=== PATIENT | male | born 1975 | race Caucasian/White ===

== ENCOUNTER 2018-12-11 16:02 | Emergency (ER) | payer OTHER ==
[~2018-12-11] VITALS: Ht 182.9 cm; Wt 89.4 kg
[2018-12-11 16:16] VITALS: Ht 182.9 cm; Wt 89.4 kg
[2018-12-11 17:59] LABS: CARBON DIOXIDE 27.1 mmol/L (21-32); CHLORIDE SERUM 103 mmol/L (98-107); CREATININE SERUM 1.1 mg/dL (0.7-1.3); GFR1 > 60 mL/min; GLUCOSE SERUM 88 mg/dL (74-106); POTASSIUM SERUM 3.5 mmol/L (3.5-5.1); SODIUM SERUM 140 mmol/L (136-145)
[2018-12-11 18:03] LABS: ALBUMIN 4.3 g/dL (3.4-5.0); ALKALINE PHOSPHATASE 94 U/L (46-116); ALT/SGPT 50 U/L (16-63); AST/SGOT 28 U/L (15-37); BILIRUBIN TOTAL 0.8 mg/dL (0.20-1.00); MAGNESIUM 1.9 mg/dL (1.8-2.4); TOTAL PROTEIN, SERUM 7.8 g/dL (6.4-8.2)
[2018-12-11 18:53] VITALS: BP 125/80
== END 2018-12-11 18:53 | disposition home or self-care (01) ==
LOC: ED 16:02
PROVIDERS: Specialist
DX: G43.909 Migraine, unspecified, not intractable, without status migrainosus (principal); I10 Essential (primary) hypertension; F41.9 Anxiety disorder, unspecified; F90.9 Attention-deficit hyperactivity disorder, unspecified type; Z88.0 Allergy status to penicillin
CPT/HCPCS: 36415; J1885; J8597

== ENCOUNTER 2019-04-17 08:08 | Emergency (ER) | payer MEDICAID ==
[~2019-04-17] VITALS: Ht 180.3 cm; Wt 77.1 kg
[2019-04-17 08:19] VITALS: Ht 180.3 cm; Wt 77.1 kg
[2019-04-17 09:57] LABS: BASOPHIL % 0.6 % (0-2); PLATELET COUNT 319 x10^3mcL (130-400); RED CELL DISTRIBUTION WIDTH 13.4 % (11.5-14.5)
[2019-04-17 10:05] LABS: CALCIUM 9.4 mg/dL (8.5-10.1); CARBON DIOXIDE 29.4 mmol/L (21-32); CHLORIDE SERUM 105 mmol/L (98-107); CREATININE SERUM 0.9 mg/dL (0.7-1.3); GFR1 > 60 mL/min; GLUCOSE SERUM 97 mg/dL (74-106); POTASSIUM SERUM 4.6 mmol/L (3.5-5.1); SODIUM SERUM 143 mmol/L (136-145)
[2019-04-17 10:10] LABS: ALBUMIN 4.4 g/dL (3.4-5.0); ALKALINE PHOSPHATASE 115 U/L (46-116); ALT/SGPT 28 U/L (16-63); AST/SGOT 11 U/L (15-37)
[2019-04-17 10:16] LABS: TOTAL PROTEIN, SERUM 8.4 g/dL (6.4-8.2)
[2019-04-17 12:02] VITALS: BP 122/75
== END 2019-04-17 12:02 | disposition home or self-care (01) ==
LOC: ED 08:08
PROVIDERS: Specialist
DX: R07.89 Other chest pain (principal); I47.1 Supraventricular tachycardia; F41.9 Anxiety disorder, unspecified; F90.9 Attention-deficit hyperactivity disorder, unspecified type; Z88.0 Allergy status to penicillin
CPT/HCPCS: 36415

== ENCOUNTER 2019-12-06 21:29 | Inpatient (IN) | payer OTHER ==
[~2019-12-06] VITALS: Ht 180.3 cm; Wt 85.3 kg
[2019-12-06] MEDS ORDERED: PROPRANOLOL HCL10 MG PO (21:34)
[2019-12-06 21:37] VITALS: Ht 180.3 cm; Wt 85.3 kg
[2019-12-06 22:04] LABS: BASOPHIL % 0.5 % (0-2); PLATELET COUNT 333 x10^3mcL (130-400); RED CELL DISTRIBUTION WIDTH 13.3 % (11.5-14.5)
[2019-12-06 22:21] LABS: CALCIUM 9.5 mg/dL (8.5-10.1); CARBON DIOXIDE 26.6 mmol/L (21-32); CHLORIDE SERUM 102 mmol/L (98-107); CREATININE SERUM 1.1 mg/dL (0.7-1.3); GFR1 > 60 mL/min; GLUCOSE SERUM 163 mg/dL (74-106); SODIUM SERUM 139 mmol/L (136-145)
[2019-12-06 22:26] LABS: ALBUMIN 3.8 g/dL (3.4-5.0); ALKALINE PHOSPHATASE 99 U/L (46-116); ALT/SGPT 48 U/L (16-63); AST/SGOT 32 U/L (15-37); BILIRUBIN TOTAL 0.4 mg/dL (0.20-1.00); TOTAL PROTEIN, SERUM 6.7 g/dL (6.4-8.2)
[2019-12-07 02:45] VITALS: BP 136/93
[2019-12-07] MEDS ORDERED: ESCITALOPRAM OXA5 MG PO (02:50)
[2019-12-07] MEDS ORDERED: ASPIR 8181 MG PO (02:51)
[2019-12-07] MEDS ORDERED: NASAL MIST126 ML (02:51)
[2019-12-07 04:42] LABS: CHOLESTEROL/HDL RATIO 3.8; PHOSPHOROUS 2.6 mg/dL (2.5-4.9)
[2019-12-07 04:52] LABS: T3 TOTAL 1.29 ng/mL
[2019-12-07 04:54] LABS: FREE T4 0.87 ng/dL (0.76-1.46); FREE THYROXINE INDEX 1.8 ug/dL (1.4-4.5); T4(THYROXINE) 5.2 ug/dL (4.7-13.3)
[2019-12-07 06:31] VITALS: BP 118/79
[2019-12-07 07:07] LABS: microscopic required? NO
[2019-12-07 07:18] LABS: BASOPHIL % 0.2 % (0-2); PLATELET COUNT 252 x10^3mcL (130-400); RED CELL DISTRIBUTION WIDTH 13.7 % (11.5-14.5)
[2019-12-07 07:44] LABS: CALCIUM 8.9 mg/dL (8.5-10.1); CARBON DIOXIDE 28.8 mmol/L (21-32); CHLORIDE SERUM 104 mmol/L (98-107); CREATININE SERUM 0.9 mg/dL (0.7-1.3); GFR1 > 60 mL/min; GLUCOSE SERUM 94 mg/dL (74-106); POTASSIUM SERUM 3.7 mmol/L (3.5-5.1); SODIUM SERUM 139 mmol/L (136-145)
[2019-12-07 08:15] VITALS: BP 117/80
[2019-12-07 09:15] LABS: UA SPECIFIC GRAVITY 1.015 (1.005-1.035)
[2019-12-07 09:16] LABS: AMPHETAMINE QUAL UR NONE DETECTED (See below); urine erythrocyte NEGATIVE (NEGATIVE)
[2019-12-07 11:46] VITALS: BP 124/74
[2019-12-07 16:37] VITALS: BP 132/94
[2019-12-07 16:53] VITALS: BP 132/94
== END 2019-12-07 17:10 | disposition home or self-care (01) | DRG 201 ==
LOC: ED 21:29 → DU 12-07 01:32
PROVIDERS: Emergency Medicine; ADMIT Internal Medicine
DX: I47.1 Supraventricular tachycardia (principal); I21.A1 Myocardial infarction type 2; F32.9 Major depressive disorder, single episode, unspecified; F41.9 Anxiety disorder, unspecified; F12.20 Cannabis dependence, uncomplicated; F90.9 Attention-deficit hyperactivity disorder, unspecified type; Z66 Do not resuscitate; Z88.0 Allergy status to penicillin; Z82.49 Family history of ischemic heart disease and other diseases of the circulatory system; Z79.899 Other long term (current) drug therapy
CPT/HCPCS: 83880; 84439; G0378; J0153; J1650; J7030; Q0092

== ENCOUNTER 2019-12-21 05:56 | Inpatient (IN) | payer OTHER ==
[~2019-12-21] VITALS: Ht 179.1 cm; Wt 93.0 kg
[~2019-12-21 05:56] MED LIST: ASPIR 8181 MG PO; ESCITALOPRAM OXA5 MG PO; NASAL MIST126 ML; PROPRANOLOL HCL10 MG PO
[2019-12-21 05:59] VITALS: Ht 179.1 cm; Wt 93.0 kg
[2019-12-21 07:43] LABS: BASOPHIL % 0.3 % (0-2); PLATELET COUNT 234 x10^3mcL (130-400); RED CELL DISTRIBUTION WIDTH 13.2 % (11.5-14.5)
[2019-12-21 07:47] LABS: ALKALINE PHOSPHATASE 88 U/L (46-116); ALT/SGPT 59 U/L (16-63); AST/SGOT 32 U/L (15-37); BILIRUBIN TOTAL 0.4 mg/dL (0.20-1.00); CARBON DIOXIDE 24.5 mmol/L (21-32); CREATININE SERUM 1.1 mg/dL (0.7-1.3); GFR1 > 60 mL/min; GLUCOSE SERUM 111 mg/dL (74-106); TOTAL PROTEIN, SERUM 6.3 g/dL (6.4-8.2)
[2019-12-21 07:49] LABS: ALBUMIN 3.3 g/dL (3.4-5.0)
[2019-12-21 07:53] LABS: CHLORIDE SERUM 104 mmol/L (98-107); POTASSIUM SERUM 3.8 mmol/L (3.5-5.1); SODIUM SERUM 138 mmol/L (136-145)
[2019-12-21] MEDS ORDERED: PRILOSEC OTC20 M1 (11:24)
[2019-12-21 12:36] LABS: PHOSPHOROUS 2.3 mg/dL (2.5-4.9)
[2019-12-21 12:37] LABS: CHOLESTEROL/HDL RATIO 3.7
[2019-12-21 13:05] VITALS: BP 140/95
[2019-12-21 16:46] VITALS: BP 126/69
[2019-12-21 20:17] VITALS: BP 118/85
[2019-12-22 05:40] VITALS: BP 122/85
[2019-12-22 08:39] VITALS: BP 124/83
[2019-12-22 09:00] LABS: BASOPHIL % 0.3 % (0-2); PLATELET COUNT 270 x10^3mcL (130-400); RED CELL DISTRIBUTION WIDTH 13.4 % (11.5-14.5)
[2019-12-22 09:01] LABS: CALCIUM 9.1 mg/dL (8.5-10.1); CARBON DIOXIDE 28.8 mmol/L (21-32); CHLORIDE SERUM 103 mmol/L (98-107); GFR1 > 60 mL/min; GLUCOSE SERUM 129 mg/dL (74-106); POTASSIUM SERUM 3.8 mmol/L (3.5-5.1); SODIUM SERUM 139 mmol/L (136-145)
[2019-12-22 13:21] VITALS: BP 144/92
[2019-12-22 16:00] VITALS: BP 144/92
== END 2019-12-22 17:24 | disposition home or self-care (01) | DRG 201 ==
LOC: ED 05:56 → DU 11:57
PROVIDERS: Emergency Medicine; ADMIT Family Medicine
DX: I47.1 Supraventricular tachycardia (principal); I71.2 Thoracic aortic aneurysm, without rupture; F12.20 Cannabis dependence, uncomplicated; F41.9 Anxiety disorder, unspecified; F32.9 Major depressive disorder, single episode, unspecified; Z88.0 Allergy status to penicillin
CPT/HCPCS: 83880; G0378; J0153; Q0092

== ENCOUNTER 2020-01-04 06:56 | Emergency (ER) | payer OTHER ==
[~2020-01-04] VITALS: Ht 180.3 cm; Wt 90.7 kg
[~2020-01-04 06:56] MED LIST changes: +PRILOSEC OTC20 M1
[2020-01-04 06:58] VITALS: Ht 180.3 cm; Wt 90.7 kg
[2020-01-04 08:16] LABS: BASOPHIL % 0.3 % (0-2); PLATELET COUNT 256 x10^3mcL (130-400); RED CELL DISTRIBUTION WIDTH 13.2 % (11.5-14.5)
[2020-01-04 08:19] LABS: CALCIUM 8.5 mg/dL (8.5-10.1); CHLORIDE SERUM 102 mmol/L (98-107); GFR1 > 60 mL/min; GLUCOSE SERUM 128 mg/dL (74-106); POTASSIUM SERUM 3.8 mmol/L (3.5-5.1); SODIUM SERUM 139 mmol/L (136-145)
[2020-01-04 08:23] LABS: ALBUMIN 3.7 g/dL (3.4-5.0); ALKALINE PHOSPHATASE 109 U/L (46-116); ALT/SGPT 60 U/L (16-63); AST/SGOT 29 U/L (15-37); BILIRUBIN TOTAL 0.4 mg/dL (0.20-1.00); TOTAL PROTEIN, SERUM 7.1 g/dL (6.4-8.2)
[2020-01-04 10:21] VITALS: BP 130/89
== END 2020-01-04 10:21 | disposition home or self-care (01) ==
LOC: ED 06:56
PROVIDERS: Emergency Medicine
DX: I47.1 Supraventricular tachycardia (principal); Z88.0 Allergy status to penicillin
CPT/HCPCS: 85378; J0153; J7030; Q0092; U0003-CS

== ENCOUNTER 2020-01-18 02:17 | Emergency (ER) | payer OTHER ==
[~2020-01-18] VITALS: Ht 177.8 cm; Wt 90.7 kg
[2020-01-18 02:21] VITALS: Ht 177.8 cm; Wt 90.7 kg
[2020-01-18 03:18] LABS: BASOPHIL % 0.4 % (0-2); PLATELET COUNT 287 x10^3mcL (130-400); RED CELL DISTRIBUTION WIDTH 13.3 % (11.5-14.5)
[2020-01-18 03:28] LABS: CARBON DIOXIDE 23.2 mmol/L (21-32); CHLORIDE SERUM 103 mmol/L (98-107); CREATININE SERUM 1.1 mg/dL (0.7-1.3); GFR1 > 60 mL/min; GLUCOSE SERUM 182 mg/dL (74-106); POTASSIUM SERUM 3.8 mmol/L (3.5-5.1); SODIUM SERUM 138 mmol/L (136-145)
[2020-01-18 03:33] LABS: ALBUMIN 3.8 g/dL (3.4-5.0); ALKALINE PHOSPHATASE 117 U/L (46-116); ALT/SGPT 83 U/L (16-63); AST/SGOT 33 U/L (15-37); BILIRUBIN TOTAL 0.33 mg/dL (0.20-1.00); TOTAL PROTEIN, SERUM 6.9 g/dL (6.4-8.2)
[2020-01-18 04:45] VITALS: BP 118/83
== END 2020-01-18 04:45 | disposition home or self-care (01) ==
LOC: ED 02:17
PROVIDERS: Emergency Medicine
DX: I47.1 Supraventricular tachycardia (principal); Z88.0 Allergy status to penicillin
CPT/HCPCS: Q0092

== ENCOUNTER 2020-02-19 03:54 | Emergency (ER) | payer OTHER ==
[~2020-02-19] VITALS: Ht 180.3 cm; Wt 99.8 kg
[2020-02-19 03:58] VITALS: Ht 180.3 cm; Wt 99.8 kg
[2020-02-19 04:35] LABS: CALCIUM 8.3 mg/dL (8.5-10.1); CARBON DIOXIDE 27.1 mmol/L (21-32); CHLORIDE SERUM 104 mmol/L (98-107); CREATININE SERUM 1.1 mg/dL (0.7-1.3); GFR1 > 60 mL/min; GLUCOSE SERUM 135 mg/dL (74-106); POTASSIUM SERUM 4.7 mmol/L (3.5-5.1); SODIUM SERUM 139 mmol/L (136-145)
[2020-02-19 04:36] LABS: BASOPHIL % 0.6 % (0-2); PLATELET COUNT 305 x10^3mcL (130-400); RED CELL DISTRIBUTION WIDTH 13.5 % (11.5-14.5)
[2020-02-19 07:26] VITALS: BP 118/91
== END 2020-02-19 07:26 | disposition home or self-care (01) ==
LOC: ED 03:54
PROVIDERS: Emergency Medicine
DX: I47.1 Supraventricular tachycardia (principal)
CPT/HCPCS: J0153; J3475

== ENCOUNTER 2020-04-24 04:08 | Emergency (ER) | payer OTHER ==
[~2020-04-24] VITALS: Ht 180.3 cm; Wt 90.7 kg
[2020-04-24 04:18] VITALS: Ht 180.3 cm; Wt 90.7 kg
[2020-04-24 04:47] LABS: BASOPHIL % 0.8 % (0-2); PLATELET COUNT 311 x10^3mcL (130-400); RED CELL DISTRIBUTION WIDTH 13.3 % (11.5-14.5)
[2020-04-24 04:56] LABS: CARBON DIOXIDE 24.2 mmol/L (21-32); CHLORIDE SERUM 103 mmol/L (98-107); CREATININE SERUM 1.2 mg/dL (0.7-1.3); GFR1 > 60 mL/min; GLUCOSE SERUM 121 mg/dL (74-106); POTASSIUM SERUM 3.4 mmol/L (3.5-5.1); SODIUM SERUM 138 mmol/L (136-145)
[2020-04-24 05:00] LABS: ALKALINE PHOSPHATASE 110 U/L (46-116); ALT/SGPT 81 U/L (16-63); AST/SGOT 34 U/L (15-37); BILIRUBIN TOTAL 0.31 mg/dL (0.20-1.00); TOTAL PROTEIN, SERUM 7.8 g/dL (6.4-8.2)
[2020-04-24 06:15] VITALS: BP 124/83
== END 2020-04-24 06:15 | disposition home or self-care (01) ==
LOC: ED 04:08
PROVIDERS: Emergency Medicine
DX: I47.1 Supraventricular tachycardia (principal)
CPT/HCPCS: J0153; J7030; Q0092

== ENCOUNTER 2020-06-07 16:10 | Emergency (ER) | payer OTHER ==
[~2020-06-07] VITALS: Ht 172.7 cm; Wt 90.7 kg
[2020-06-07 16:15] VITALS: Ht 172.7 cm; Wt 90.7 kg
[2020-06-07 17:37] LABS: BASOPHIL % 0.4 % (0-2); PLATELET COUNT 289 x10^3mcL (130-400); RED CELL DISTRIBUTION WIDTH 13.2 % (11.5-14.5)
[2020-06-07 17:47] LABS: CALCIUM 8.7 mg/dL (8.5-10.1); CARBON DIOXIDE 27.1 mmol/L (21-32); CHLORIDE SERUM 104 mmol/L (98-107); CREATININE SERUM 1.1 mg/dL (0.7-1.3); GFR1 > 60 mL/min; GLUCOSE SERUM 88 mg/dL (74-106); POTASSIUM SERUM 3.8 mmol/L (3.5-5.1); SODIUM SERUM 138 mmol/L (136-145)
[2020-06-07 18:00] LABS: ALBUMIN 3.9 g/dL (3.4-5.0); ALKALINE PHOSPHATASE 93 U/L (46-116); ALT/SGPT 67 U/L (16-63); AST/SGOT 32 U/L (15-37); BILIRUBIN TOTAL 0.57 mg/dL (0.20-1.00); T4(THYROXINE) 5.5 ug/dL (4.7-13.3); TOTAL PROTEIN, SERUM 7.3 g/dL (6.4-8.2)
[2020-06-07 18:08] LABS: AMPHETAMINE QUAL UR NONE DETECTED (See below)
[2020-06-07 18:09] LABS: MAGNESIUM 1.9 mg/dL (1.8-2.4)
[2020-06-07 18:35] VITALS: BP 114/87
== END 2020-06-07 18:35 | disposition home or self-care (01) ==
LOC: ED 16:10
PROVIDERS: Emergency Medicine
DX: R07.89 Other chest pain (principal); I72.9 Aneurysm of unspecified site; F90.9 Attention-deficit hyperactivity disorder, unspecified type; F41.9 Anxiety disorder, unspecified; F12.10 Cannabis abuse, uncomplicated; Z88.0 Allergy status to penicillin
CPT/HCPCS: J0153; J7030; Q0092

== ENCOUNTER 2020-07-05 07:46 | Emergency (ER) | payer OTHER ==
[~2020-07-05] VITALS: Ht 180.3 cm; Wt 90.7 kg
[2020-07-05 07:54] VITALS: Ht 180.3 cm; Wt 90.7 kg
[2020-07-05 08:18] LABS: PLATELET COUNT 306 x10^3mcL (130-400); RED CELL DISTRIBUTION WIDTH 13.6 % (11.5-14.5)
[2020-07-05 08:26] LABS: CARBON DIOXIDE 25.6 mmol/L (21-32); CHLORIDE SERUM 101 mmol/L (98-107); CREATININE SERUM 1.2 mg/dL (0.7-1.3); GFR1 > 60 mL/min; GLUCOSE SERUM 153 mg/dL (74-106); POTASSIUM SERUM 3.9 mmol/L (3.5-5.1); SODIUM SERUM 139 mmol/L (136-145)
[2020-07-05 08:39] LABS: ALKALINE PHOSPHATASE 108 U/L (46-116); ALT/SGPT 82 U/L (16-63); AST/SGOT 39 U/L (15-37); BILIRUBIN TOTAL 0.63 mg/dL (0.20-1.00); MAGNESIUM 2.1 mg/dL (1.8-2.4); T4(THYROXINE) 6.2 ug/dL (4.7-13.3); TOTAL PROTEIN, SERUM 7.7 g/dL (6.4-8.2)
[2020-07-05 09:57] LABS: AMPHETAMINE QUAL UR NONE DETECTED (See below)
[2020-07-05 10:42] VITALS: BP 137/83
== END 2020-07-05 10:42 | disposition home or self-care (01) ==
LOC: ED 07:46
PROVIDERS: Emergency Medicine
DX: R07.89 Other chest pain (principal); F90.9 Attention-deficit hyperactivity disorder, unspecified type; I71.9 Aortic aneurysm of unspecified site, without rupture; F12.10 Cannabis abuse, uncomplicated; F41.9 Anxiety disorder, unspecified; Z88.0 Allergy status to penicillin
CPT/HCPCS: J0153; J7030